=== PATIENT | female | born 1935 | race African-American/Black ===

== ENCOUNTER 2022-08-21 13:17 | Inpatient (IN) | payer OTHER ==
[~2022-08-21] VITALS: Ht 170.2 cm; Wt 63.5 kg
[2022-08-21 15:56] LABS: BASOPHILS % 0.2 % (0.0-2.0); EOSINOPHILS % 2.2 % (0.0-5.0); HEMATOCRIT. 35.8 % (36.0-48.0); HEMOGLOBIN. 12.2 g/dL (12.0-16.0); LYMPHOCYTES % 23.3 % (20.0-50.0); MEAN CORPUSCULAR HEMOGLOBIN 32.5 pg (28.0-32.0); MEAN CORPUSCULAR VOLUME 95.2 fL (81.0-99.0); MEAN PLATELET VOLUME 7.8 fl (7.4-10.4); MONOCYTES % 5.3 % (2.0-8.0); PLATELET 205 x1000/uL (130-400); RED BLOOD CELL COUNT 3.76 mill/uL (4.2-5.4); RED CELL DISTRIBUTION WIDTH 13.9 % (11.6-14.6)
[2022-08-21 16:13] LABS: CHLORIDE 109 mEq/L (98-107)
[2022-08-21 16:25] LABS: CREATINE KINASE 41 IU/L (26-192); ETHANOL BLOOD < 10 mg/dL
[2022-08-21 17:41] LABS: CLARITY URINE CLOUDY (CLEAR); COLOR URINE YELLOW (YELLOW); KETONES URINE NEGATIVE (NEGATIVE); LEUKOCYTE ESTERASE URINE 3+ (NEGATIVE); NITRITE URINE NEGATIVE (NEGATIVE); OCCULT BLOOD URINE NEGATIVE (NEGATIVE); PROTEIN URINE NEGATIVE (NEGATIVE); SPECIFIC GRAVITY URINE 1.015 (1.005-1.030); UROBILINOGEN URINE 0.2 E.U./dL (0.2-1.0)
[2022-08-21 17:56] LABS: *AMPHETAMINES SCREEN URINE NEGATIVE (NEGATIVE); *BARBITURATES SCREEN URINE NEGATIVE (NEGATIVE); *BENZODIAZEPINES SCREEN URINE NEGATIVE (NEGATIVE); *COCAINE SCREEN URINE NEGATIVE (NEGATIVE); CANNABINOID URINE SCREEN NEGATIVE (NEGATIVE); METHADONE URINE SCREEN NEGATIVE (NEGATIVE); OPIATES URINE SCREEN NEGATIVE (NEGATIVE); PHENCYCLIDINE URINE SCREEN NEGATIVE (NEGATIVE)
[2022-08-21] MEDS ORDERED: CEFTRIAXONE 1 G PREMIX 50 ML IV NR (18:45)
[2022-08-21] MEDS ORDERED: CEFTRIAXONE 1 G PREMIX 50 ML IV SCH (22:15)
[2022-08-21] MEDS ORDERED: ACETAMINOPHEN 325MG TABLET PO PRN (22:15)
[2022-08-21] MEDS ORDERED: ONDANSETRON HCL 4MG/2ML INJ IV PRN (22:15)
[2022-08-22] VITALS: BP 164/45
[2022-08-22] MEDS ORDERED: CLONIDINE 0.1MG TABLET PO PRN (02:00)
[2022-08-22 02:12] VITALS: BP 124/55
[2022-08-22] MEDS: SODIUM CHLORIDE 0.9% 1,000 ML IV SCH ×3 (02:27→22:09)
[2022-08-22] MEDS ORDERED: FAMO20TA8 MT (03:01)
[2022-08-22] MEDS ORDERED: CLOP75TA33 PO (03:03)
[2022-08-22] MEDS ORDERED: PHEN50TA PO (03:03)
[2022-08-22] MEDS ORDERED: LEVE1000 MT (03:04)
[2022-08-22] MEDS ORDERED: MULT-1146 MT (03:04)
[2022-08-22] MEDS ORDERED: AMLO5TAB4 PO (03:05)
[2022-08-22] MEDS ORDERED: CITA10SO MT (03:06)
[2022-08-22] MEDS ORDERED: LATA2.5D4 EACHEYE (03:08)
[2022-08-22] MEDS ORDERED: MIRT7.5T11 MT (03:09)
[2022-08-22] MEDS: CEFTRIAXONE 1,000 MG in DEXTROSE 5% WATER 50 ML IV SCH (05:59)
[2022-08-22 08:00] VITALS: BP 158/77
[2022-08-22] MEDS: ENOXAPARIN 30MG/0.3ML SYR SUBCUT SCH (08:52)
[2022-08-22 12:00] VITALS: BP 151/55
[2022-08-22] MEDS ORDERED: AMLODIPINE 2.5MG TABLET PO NR (14:15)
[2022-08-22 16:00] VITALS: BP 172/68
[2022-08-22] MEDS ORDERED: HYDRALAZINE 20MG/ML VIAL IV NR (17:24)
[2022-08-22 20:43] VITALS: BP 150/63
[2022-08-22] MEDS ORDERED: AMLODIPINE 2.5MG TABLET PO SCH (21:00)
[2022-08-22] MEDS ORDERED: POTASSIUM CHLORIDE 20MEQ TABLET SR PO NR (21:00)
[2022-08-23] VITALS: BP 140/80
[2022-08-23] MEDS ORDERED: DIGOXIN 500MCG/2ML AMP IV NR (00:15)
[2022-08-23 04:00] VITALS: BP 162/78
[2022-08-23] MEDS: SODIUM CHLORIDE 0.9% 1,000 ML IV SCH ×2 (06:09→15:57)
[2022-08-23] MEDS: CEFTRIAXONE 1,000 MG in DEXTROSE 5% WATER 50 ML IV SCH (06:09)
[2022-08-23 08:00] VITALS: BP 191/71
[2022-08-23] MEDS ORDERED: CLOPIDOGREL 75MG TABLET PO SCH (09:00)
[2022-08-23] MEDS: ENOXAPARIN 30MG/0.3ML SYR SUBCUT SCH (09:32)
[2022-08-23] MEDS: HYDRALAZINE 20MG/ML VIAL IV PRN ×2 (09:37→18:17)
[2022-08-23 12:00] VITALS: BP 130/67
[2022-08-23] MEDS ORDERED: DIGOXIN 500MCG/2ML AMP IV ONE (12:45)
[2022-08-23] MEDS ORDERED: DIGOXIN 500MCG/2ML AMP IV PRN (12:45)
[2022-08-23 16:00] VITALS: BP 159/74
[2022-08-23] MEDS ORDERED: PHENYTOIN 100 MG/4 ML UDC NG SCH ×2 (17:00→22:00)
[2022-08-23 17:44] VITALS: BP 159/74
[2022-08-23] MEDS ORDERED: AMLODIPINE 5MG TABLET PO SCH (21:00)
[2022-08-23] MEDS ORDERED: LEVETIRACETAM 500MG/5ML CUP PO SCH (21:00)
== END 2022-08-23 21:42 | disposition short-term general hospital (02) | DRG 73 ==
LOC: ER 13:17 → 7WST 17:36 → EDBEDREQ 17:39 → EDBEDREQTM 17:39 → ENRESERV 21:56
PROVIDERS: ADMIT Internal Medicine; ATTEND Internal Medicine
DX: G90.9 Disorder of the autonomic nervous system, unspecified (principal); I21.A1 Myocardial infarction type 2; N39.0 Urinary tract infection, site not specified; I69.351 Hemiplegia and hemiparesis following cerebral infarction affecting right dominant side; I48.92 Unspecified atrial flutter; I48.0 Paroxysmal atrial fibrillation; Z20.822 Contact with and (suspected) exposure to COVID-19; I10 Essential (primary) hypertension; E87.6 Hypokalemia; G40.909 Epilepsy, unspecified, not intractable, without status epilepticus; I44.0 Atrioventricular block, first degree; I69.320 Aphasia following cerebral infarction; F03.90 Unspecified dementia, unspecified severity, without behavioral disturbance, psychotic disturbance, mood disturbance, and anxiety; F32.A Depression, unspecified; R77.8 Other specified abnormalities of plasma proteins; I25.10 Atherosclerotic heart disease of native coronary artery without angina pectoris; Z79.899 Other long term (current) drug therapy; Z79.02 Long term (current) use of antithrombotics/antiplatelets
CPT/HCPCS: 36415; 70551; 71045; 80053; 80305; 80320; 81003; 82140; 82550; 83605; 83880; 84484; 85025; 87077; 87186; 87426; 93005; 93306; 93970; 99285; A6261; J0360; J0696; J1160; J1650; J7060; G0480